=== PATIENT | female | born 1990 | race Caucasian/White ===

== ENCOUNTER 2019-11-26 08:43 | Day surgery (SDC) | payer BC, OTHER ==
[~2019-11-26] VITALS: Ht 167.6 cm; Wt 69.4 kg
[~2019-11-26 08:43] MED LIST: ACID REDUCER20 MG PO; INDOMETHACIN 2525 MG PO; MELATONIN5 M6 PO
[2019-11-26 09:54] VITALS: BP 100/53
[2019-11-26 12:20] VITALS: BP 100/53
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
== END 2019-11-26 13:10 | disposition home or self-care (01) ==
LOC: TBA 08:43 → OR 08:43 → TBA 08:44 → OR 12:32
PROVIDERS: ATTEND Orthopaedic Surgery Sports Medicine
DX: M25.562 Pain in left knee (principal); S83.242A Other tear of medial meniscus, current injury, left knee, initial encounter; M24.662 Ankylosis, left knee; G43.909 Migraine, unspecified, not intractable, without status migrainosus; K21.9 Gastro-esophageal reflux disease without esophagitis; Z98.890 Other specified postprocedural states; Z79.899 Other long term (current) drug therapy; Z11.59 Encounter for screening for other viral diseases; X58.XXXA Exposure to other specified factors, initial encounter; Y93.89 Activity, other specified; Y92.89 Other specified places as the place of occurrence of the external cause; Y99.8 Other external cause status
CPT/HCPCS: 50010; 50101; 50405; 51038; 51445; 54170; 56527; 57103; 57180; 62110; 62900; 70005

== ENCOUNTER → 2020-08-06 | Outpatient (CLI) | payer BC, OTHER | LOC: LAB 11:01 | PROVIDERS: ATTEND Anesthesiology | DX: Z01.812 Encounter for preprocedural laboratory examination (principal); Z20.822 Contact with and (suspected) exposure to COVID-19 ==